=== PATIENT | male | born 1960 | race Caucasian/White ===

== ENCOUNTER → 2020-04-10 09:22 | Outpatient (BNVA) | payer MEDICARE, SELFPAY | PROVIDERS: Family Provider Urology; PCP Family Medicine; Visit Provider Family Medicine Adult Medicine | DX: I12.9 Hypertensive chronic kidney disease with stage 1 through stage 4 chronic kidney disease, or unspecified chronic kidney disease (principal); M10.9 Gout, unspecified; Z12.5 Encounter for screening for malignant neoplasm of prostate; N18.30 Chronic kidney disease, stage 3 unspecified | CPT/HCPCS: 80053; 84153; 84550; 85025 ==

== ENCOUNTER 2021-07-07 08:12 | Emergency (ER) | payer MEDICARE, SELFPAY ==
[2021-07-07 08:28] VITALS: PULSE 119; RESP 18; TEMP 36.8; O2SAT 94; BMI 34.9
[2021-07-07 08:36] VITALS: BP 197/112
--- NOTE | 2021-07-07 08:42 | ED_ITS ---
HPI - Male Genitourinary General: Chief complaint: Urogenital-Male Stated complaint: Diff Urinating Time Seen by Provider: 07/07/21 08:29 Source: patient and family Mode of arrival: ambulatory Limitations: no limitations History of Present Illness: HPI Narrative: Patient is a nice 60-year-old male who presents to ED today along with family for concerns of acute urinary retention that began around 9-10 PM yesterday evening. Patient is complaining of lower abdominal pain and distention. Patient reports he had some issues with his prostate approximately 7 years ago but states he has not had much issues since then. He has not noticed any hematuria. No flank pain. No fevers. No new medications. No recent surgeries or anesthesia. Current medications include allopurinol and lisinopril. MD Complaint: other (urinary retention) Onset (ago): hour(s) Associated symptoms: Deny dysuria, hematuria, nausea or vomiting Review of Systems Const: Denies: fever(s), chills, body aches, fatigue or malaise Card: Denies: chest pain Resp: Denies: dyspnea GI: Reports: abdominal pain; Denies: nausea, vomiting or diarrhea : Reports: difficulty urinating and difficulty starting urination; Denies: flank pain, dysuria or hematuria Musc: Denies: back pain Neuro: Denies: headache(s) PFSH ED PFSH: Medical History (Updated 07/07/21 @ 11:46 by LIV Ngo) CKD (chronic kidney disease) stage 3, GFR 30-59 ml/min Hypertension Prostate cancer screening Social History Smoking and tobacco status: never smoked Alcohol intake: never Physical Exam Const: COMMON NORMALS: patient oriented x3, no limitations and alert GENERAL APPEARANCE: cooperative and in distress (uncomfortable) ORIENTATION/CONSCIOUSNESS: Yes awake, Yes oriented to person, Yes oriented to place and Yes oriented to time HENMT: COMMON NORMALS: normocephalic and atraumatic HEAD & SCALP: normocephalic and atraumatic Resp: COMMON NORMALS: normal respiratory effort and clear to auscultation bilaterally AUSCULTATION: clear to auscultation bilaterally Cardio: COMMON NORMALS: regular rate and regular rhythm RATE: regular rate RHYTHM: regular rhythm GI: COMMON NORMALS: Soft to palpation and No hepatosplenomegaly present INSPECTION: Yes normal to inspection AUSCULTATION: Yes normoactive bowel sounds PALPATION: Yes Soft to palpation, Yes No hepatosplenomegaly present and Yes Other GI palpation findings present (distended bladder) : COMMON NORMALS: Yes no CVA tenderness BLADDER/KIDNEY EXAM: Yes no CVA tenderness Back/Pelvis: COMMON NORMALS: no CVA tenderness LUMBAR SPINE/LOWER BACK: Yes normal to inspection, Yes lumbar ROM normal and No lumbar spinal tenderness Extremity: COMMON NORMALS: normal to inspection, no clubbing, cyanosis or edema, no calf tenderness and no pedal edema Neuro: COMMON NORMALS: patient oriented x3 SENSORIUM/ORIENTATION: Yes alert, Yes oriented to person, Yes oriented to place and Yes oriented to time Skin: COMMON NORMALS: no rashes or lesions noted GENERAL SKIN EXAM: no rashes or lesions noted Course ED course: Davis inserted by RN-per nurse she initially had trouble inserting davis, removed, cleaned and re-inserted and noted bloody urine-about 800cc drained; no clots or sediment noted; irrigated davis until clear-tubing now completely clear Consultations: Consultation #1: Dr. Mendez-recommends flomax, increase fluids, and will follow up in office Vital Signs: Vital signs: Vital Signs Temperature 98.2 F 07/07/21 08:28 Pulse Rate 55 L 07/07/21 11:00 Respiratory Rate 18 07/07/21 09:06 Blood Pressure 174/98 07/07/21 11:00 Pulse Oximetry 96 07/07/21 11:00 MDM - Male MDM Narrative: Medical decision making narrative: Patient feels much better after Davis insertion and bladder decompression. Spoke to Dr. Mendez who recommends placing patient on Flomax and he will follow up in office. Recommends increasing fluid intake. Lab Data: Labs: Lab Results 07/07/21 07/07/21 07/07/21 08:57 09:02 09:02 WBC 8.9 10^3/uL 10^3/ uL (4.0-10.0) RBC 5.65 10^6/uL H 10 ^6/uL (4.1-5.3) Hgb 16.0 g/dL g/dL (11.7-16.6) Hct 48.9 % % (42.0-52.0) MCV 86.5 fl fl (80-94) MCH 28.3 pg pg (28.0-34.0) MCHC 32.7 g/dL g/dL (30.0-36.0) RDW 14.0 % % (12.1-15.1) Plt Count 309 10^3/cmm 10^3 /cmm (130-400) MPV 8.8 fL fL (7.4-10.4) Neut % (Auto) 75.6 % % Lymph % (Auto) 17.8 % % Collier % (Auto) 5.2 % % Eos % (Auto) 0.6 % % Baso % (Auto) 0.5 % % Neut # (Auto) 6.72 10^3/uL 10^3 /uL (1.8-7.7) Lymph # (Auto) 1.6 10^3/uL 10^3/ uL (0.8-4.8) Collier # (Auto) 0.5 10^3/uL 10^3/ uL (0.2-0.9) Eos # (Auto) 0.1 10^3/uL 10^3/ uL (0.0-0.8) Baso # (Auto) 0.0 10^3/uL 10^3/ uL (0.0-0.1) Nucleated RBC % (a uto) 0 % % Nucleated RBCs # 0.0 /100WBC /100W BC Sodium 140 mmol/L mmol/L (136-145) Potassium 4.3 mmol/L mmol/L (3.5-5.1) Chloride 105 mmol/L mmol/L (98-107) Carbon Dioxide 21 mmol/L L mmol/ L (22-29) Anion Gap 18.3 (5-19) BUN 13 mg/dL mg/dL (8-23) Creatinine 1.0 mg/dL mg/dL (0.7-1.2) GFR Calculation 75.7 mL/min L mL/ min (90-130) Glucose 98 mg/dL mg/dL (65-115) Calculated Osmolal ity 290 mOsm/kg mOsm/ kg (285-295) Calcium 8.7 mg/dL mg/dL (8.5-10.5) Total Bilirubin 0.3 mg/dL mg/dL (0.15-1.2) AST 22 U/L U/L (0-40) ALT 22 U/L U/L (0-41) Alkaline Phosphata se 81 IU/L IU/L (40-130) Total Protein 7.3 g/dL g/dL (6.6-8.7) Albumin 4.1 g/dL g/dL (3.5-5.2) Globulin 3.2 g/dL g/dL (1.3-4.6) Urine Color Red (Yellow) Urine Appearance Cloudy (CLEAR) Urine pH 5 (5-7) Ur Specific Gravit y 1.020 (1.005-1.030) Urine Protein 1+ H (Negative) Urine Glucose (UA) Norm (Normal) Urine Ketones Negative (Negative) Urine Blood 3+ H (Negative) Urine Nitrate Negative (Negative) Urine Bilirubin Neg (Negative) Urine Urobilinogen Norm mg/dL mg/dL (Negative) Ur Leukocyte Brittney ase Negative (Negative) Urine RBC >100 /hpf H /hpf (0-2) Urine WBC 10-15 /hpf H /hpf (0-5) Ur Squamous Epith Cells 0-4 /hpf H /hpf (0-5) Amorphous Sediment Not Reportable Urine Bacteria 2+ /hpf H /hpf (NONE) Imaging Data: CT Abd/Pel: Radiologist's impression: [place] [address] CT Scan Report Signed Patient: Javon Potter Unit #: [id number] : [id number] Age/Sex: 60 / M ADM Date: 07/07/21 Loc: ER Room/Bed: Attending Dr: Ordering Provider/Ordering MD: Demetria Gonzalez Date of Service: 07/07/21 Procedure(s): CT abdomen pelvis wo/w [id number] Accession Number(s): [id number] Report Number: [id number] WS: [id number] CT ABDOMEN PELVIS TECHNIQUE: Noncontrast CT of the abdomen and contrast-enhanced CT of the abdomen and pelvis with coronal and sagittal reformatted images. CLINICAL INFORMATION: gross hematuria/acute urinary retention COMPARISON: None. DLP: 3444.[address] scans at [facility] use at least one of these dose optimization techniques: automated exposure control; mA and/or kV adjustment per patient size (includes targeted exams where dose is matched to clinical indication); or iterative reconstruction. FINDINGS: Markedly enlarged heterogeneously enhancing prostate measures 5.5 x 7.9 x 8.9 cm AP by transverse by craniocaudal suspicious for neoplasia/hyperplasia. Davis catheter in place. Bladder is decompressed. Mild diffuse fatty infiltration of the liver. Normal gallbladder. Normal portal vein and splenic vein. Fatty atrophy of the pancreas. Splenic granulomas. Small esophageal hiatal hernia. Slight atelectasis in the lung bases. Calcified granuloma right lower lobe. A few shoddy and slightly prominent periaortic lymph nodes the largest aortocaval measuring 7 mm. No abdominal or pelvic lymphadenopathy. Stomach and proximal duodenum appear normal. Adrenal glands are normal. Normal renal parenchymal enhancement. No hydronephrosis. Normal caliber abdominal aorta. Aortic calcification. No evidence of small or large bowel obstruction. Normal appendix in the right lower quadrant. Grade 1 anterolisthesis L5 on S1 with chronic bilateral pars defects. Grade 1 anterolisthesis measures [address]/CT abdomen pelvis wo/w [id number] IMPRESSION: 1. Markedly enlarged heterogeneous enhancing prostate suspicious for neoplasia/hyperplasia. Recommend correlation PSA and urology consultation. 2. Bladder is decompressed with Davis catheter. 3. Normal renal parenchymal enhancement bilaterally. No hydronephrosis in either kidney. 4. Mild diffuse fatty infiltration liver. 5. No abdominal or pelvic lymphadenopathy. Prominent aortocaval lymph node measuring 7 mm in short axis dimension. Notified LIV Ngo at 07/07/2021 10:56 AM. Dictated By: Christofer King MD Signed By: Christofer King MD Signed Date/Time: 07/07/21 1100 DD/ 1044 Discharge Plan Discharge Patient Disposition: Home Clinical Impression: Acute urinary retention, Davis catheter in place, Hyperplasia of prostate Condition: Stable Prescriptions: New tamsulosin [Flomax] 0.4 mg capsule 0.4 mg PO DAILY Qty: 30 RF: 0 No Action cephalexin 500 mg capsule 500 mg PO TID 7 Days Qty: 21 RF: 0 lisinopril 20 mg tablet See Rx Instructions .ROUTE .COMPLEX Qty: 90 RF: 1 allopurinol 100 mg tablet See Rx Instructions .ROUTE .COMPLEX Qty: 90 RF: 1 Discharge Orders: Discharge ED (Routine); Ordered 07/07/21 Ordered By: Demetria Gonzalez Referrals: Irena Chandra DO [Primary Care Provider] - Patient Instructions: Davis Catheter Care, Urinary Retention in Men (ED), Enlarged Prostate (BPH) (ED), Davis Catheter Placement and Care (ED), How to Change a Catheter Drainage Bag (DC) Activity Restrictions/Additional Instructions: As we discussed you should hear from case management shortly on patient's follow-up date and time with Dr. Mendez/urology. He needs to begin taking Flomax today. Increase fluid intake as much as possible to help keep Davis draining and avoid clotting/obstruction. He needs to return to the emergency department if Davis is not draining appropriately. Coding Level of Care Code ED Membership Sales Advisor for [employer] Fwd Exam Comprehensive
[2021-07-07 09:06] VITALS: BP 202/105; PULSE 99; RESP 18; O2SAT 92
--- NOTE | 2021-07-07 09:06 | PC.NURSE ---
GUILLAUME CATHETER PLACED. PATIENT TOLERATED PROCEDURE WELL. GUILLAUME CATHETER ADVANCED WELL, BUT TUBING APPEARED OCCLUDED WITH NO URINE RETURN. NURSE REMOVED CATHETER, RE-CLEANSED WITH BETADINE, RE-ADVANCED CATHETER, URINE FLOW UPON ADVANCEMENT. URINE BRIGHT RED IN APPEARANCE.
--- NOTE | 2021-07-07 09:27 | PC.NURSE ---
Did not take morning meds for Blood Pressure
[2021-07-07 09:29] LABS: Add Urine Culture? Yes; Add Urine Microscopic? YES; Bacteria Urine 2+ /hpf; Bilirubin Urine Neg (Negative); Blood Urine 3+ (Negative); Glucose Urine UA Norm (Normal); Ketones Urine Negative (Negative); Leukocyte Esterase Urine Negative (Negative); Nitrate Urine Negative (Negative); Protein Urine 1+ (Negative); RBC Urine >100 /hpf (0-2); Squamous Epithelial Cell Urine 0-4 /hpf (0-5); Urine Appearance Cloudy (CLEAR); Urine Color Red (Yellow); Urobilinogen Urine Norm (Negative); pH Urine 5 (5-7)
[2021-07-07 09:30] LABS: Basophils % 0.5 %; Eosinophils # 0.1 10^3/uL (0.0-0.8); Eosinophils % 0.6 %; Hematocrit 48.9 % (42.0-52.0); Lymphocytes # 1.6 10^3/uL (0.8-4.8); Lymphocytes % 17.8 %; Mean Corpuscular HGB Conc 32.7 g/dL (30.0-36.0); Mean Corpuscular Hemoglobin 28.3 pg (28.0-34.0); Mean Corpuscular Volume 86.5 fl (80-94); Mean Platelet Volume 8.8 fL (7.4-10.4); Monocytes # 0.5 10^3/uL (0.2-0.9); Monocytes % 5.2 %; Neutrophils # 6.72 10^3/uL (1.8-7.7); Neutrophils % 75.6 %; Nucleated Red Blood Cells % 0 %; Platelet Count 309 10^3/cmm (130-400); Red Blood Count 5.65 10^6/uL (4.1-5.3); White Blood Count 8.9 10^3/uL (4.0-10.0)
--- NOTE | 2021-07-07 09:36 | CT_ITS ---
WS: [id number] CT ABDOMEN PELVIS TECHNIQUE: Noncontrast CT of the abdomen and contrast-enhanced CT of the abdomen and pelvis with bessie nal and sagittal reformatted images. CLINICAL INFORMATION: gross hematuria/acute urinary retention COMPARISON: None. DLP: 3444.[address] scans at [facility] use at least one of these dose optimization techniques: automated e xposure control; mA and/or kV adjustment per patient size (includes targeted exams where dose is matc hed to clinical indication); or iterative reconstruction. FINDINGS: Markedly enlarged heterogeneously enhancing prostate measures 5.5 x 7.9 x 8.9 cm AP by transverse by craniocaudal suspicious for neoplasia/hyperplasia. Sloan catheter in place. Bladder is decompressed. Mild diffuse fatty infiltration of the liver. Normal gallbladder. Normal portal vein and splenic vein . Fatty atrophy of the pancreas. Splenic granulomas. Small esophageal hiatal hernia. Slight atelectas is in the lung bases. Calcified granuloma right lower lobe. A few shoddy and slightly prominent peria ortic lymph nodes the largest aortocaval measuring 7 mm. No abdominal or pelvic lymphadenopathy. Stomach and proximal duodenum appear normal. Adrenal glands are normal. Normal renal parenchymal enha ncement. No hydronephrosis. Normal caliber abdominal aorta. Aortic calcification. No evidence of smal l or large bowel obstruction. Normal appendix in the right lower quadrant. Grade 1 anterolisthesis L5 on S1 with chronic bilateral pars defects. Grade 1 anterolisthesis measures [address]/CT abdomen pelvis wo/w [id number] IMPRESSION: 1. Markedly enlarged heterogeneous enhancing prostate suspicious for neoplasia /hyperplasia. Recommend correlation PSA and urology consultation. 2. Bladder is decompressed with Sloan catheter. 3. Normal renal parenchymal enhancement bilaterally. No hydronephrosis in eith er kidney. 4. Mild diffuse fatty infiltration liver. 5. No abdominal or pelvic lymphadenopathy. Prominent aortocaval lymph node varsha suring 7 mm in short axis dimension. Notified LIV Ngo at 07/07/2021 10:56 AM.
[2021-07-07 09:49] LABS: Alanine Aminotransferase 22 U/L (0-41); Albumin Level 4.1 g/dL (3.5-5.2); Alkaline Phosphatase 81 IU/L (40-130); Blood Urea Nitrogen 13 mg/dL (8-23); Calcium 8.7 mg/dL (8.5-10.5); Carbon Dioxide 21 mmol/L (22-29); Chloride 105 mmol/L (98-107); Globulin 3.2 g/dL (1.3-4.6); Glomerular Filtration Rate 75.7 mL/min (90-130); Glucose 98 mg/dL (65-115); Osmolality Calculated 290 mOsm/kg (285-295); Sodium 140 mmol/L (136-145); Total Bilirubin 0.3 mg/dL (0.15-1.2); Total Protein 7.3 g/dL (6.6-8.7)
[2021-07-07 09:51] LABS: Anion Gap 18.3 (5-19); Aspartate Amino Transferase 22 U/L (0-40); Potassium 4.3 mmol/L (3.5-5.1)
[2021-07-07] MEDS: metoprolol tartrate 1 mg/1 mL SDV 5 mL 2.5 MG IVP (10:20)
[2021-07-07] MEDS: lisinopril 20 mg Tablet PO (10:20)
[2021-07-07] MEDS: iohexol 300 mg/mL 100 mL Btl IV (10:29)
[2021-07-07 11:00] VITALS: BP 174/98; PULSE 55; O2SAT 96
--- NOTE | 2021-07-07 11:37 | DCPLANNER ---
manager dialysis was asked to schedule a follow up appointment for patient with Dr. Mendez. manager dialysis sent patients information to Matti Alford and Julie at Dr. Matson office thru [employer] laboratory manager. Patients information will be printed and reviewed, clinic will call patient with appointment information.
[2021-07-07 11:57] VITALS: BP 174/98; PULSE 75; RESP 19; O2SAT 95
--- NOTE | 2021-07-08 13:04 | DCPLANNER ---
Patient has a follow up appointment scheduled for 07.23.20 at 9:[address] Mendez. Clinic will call patient with appointment information.
--- NOTE | 2021-07-27 08:05 | DCPLANNER ---
Patient had a follow up appointment scheduled for 07.23.[address] Mendez - patient did attend appointment.
== END 2021-07-07 12:12 | disposition home or self-care (01) ==
PROVIDERS: Emergency Provider Physician Assistant; PCP Family Medicine
DX: R33.9 Retention of urine, unspecified (principal); N40.0 Benign prostatic hyperplasia without lower urinary tract symptoms; I12.9 Hypertensive chronic kidney disease with stage 1 through stage 4 chronic kidney disease, or unspecified chronic kidney disease; N18.30 Chronic kidney disease, stage 3 unspecified
CPT/HCPCS: 51702; 74178; 80053; 81001; 85025; 87086; 96374; 99284; J3490; Q9967

== ENCOUNTER 2021-09-10 08:47 | Outpatient (CLI) | payer MEDICARE, SELFPAY | END 2021-09-10 08:48 | disposition home or self-care (01) | PROVIDERS: PCP Family Medicine; Visit Provider Urology | DX: N40.1 Benign prostatic hyperplasia with lower urinary tract symptoms (principal); R31.9 Hematuria, unspecified; R97.20 Elevated prostate specific antigen [PSA] | CPT/HCPCS: 36415; 81003; 84153; 87077; 87086; 87184 ==

== ENCOUNTER → 2021-10-28 15:26 | Outpatient (BNVA) | payer MEDICARE, SELFPAY | PROVIDERS: PCP Family Medicine; Visit Provider Urology | DX: R97.20 Elevated prostate specific antigen [PSA] (principal) | CPT/HCPCS: 88305 ==

== ENCOUNTER → 2022-01-06 11:51 | Outpatient (BNVA) | payer MEDICARE, SELFPAY | PROVIDERS: PCP Family Medicine Adult Medicine; Visit Provider Family Medicine Adult Medicine | DX: M10.9 Gout, unspecified (principal); I10 Essential (primary) hypertension; N18.30 Chronic kidney disease, stage 3 unspecified | CPT/HCPCS: 80053; 83036; 84550; 85025 ==

== ENCOUNTER → 2022-02-08 08:41 | Outpatient (BNVA) | payer MEDICARE, SELFPAY | PROVIDERS: PCP Family Medicine Adult Medicine; Visit Provider Otolaryngology | DX: H91.93 Unspecified hearing loss, bilateral (principal) | CPT/HCPCS: 99203 ==

== ENCOUNTER 2022-02-22 09:33 | Outpatient (CLI) | payer MEDICARE, SELFPAY ==
[2022-02-22 10:18] LABS: Prostate Specific AG Urology 20.94 ng/mL (0-4)
== END 2022-02-22 09:34 | disposition home or self-care (01) ==
LOC: LAB 09:33
PROVIDERS: PCP Family Medicine Adult Medicine; Visit Provider Urology
DX: R97.20 Elevated prostate specific antigen [PSA] (principal); N40.1 Benign prostatic hyperplasia with lower urinary tract symptoms
CPT/HCPCS: 36415; 51798; 81003; 84153; 99213

== ENCOUNTER 2022-04-14 07:27 | Outpatient (CLI) | payer MEDICARE, MEDICAID, SELFPAY ==
--- NOTE | 2022-04-14 07:34 | MR_ITS ---
WS: [id number] MRI BRAIN WITH HIGH-RESOLUTION IMAGING THROUGH THE INTERNAL AUDITORY CANALS WITHOUT CONTRAST HISTORY: UNSPECIFIED SENSORINEURAL HEARING LOSS COMPARISON: None available. TECHNIQUE: Multiplanar, multisequence imaging is performed through the brain. Additional 3 mm imaging performed in multiple planes through the internal auditory canal. Unable to obtain IV access. Study done without contrast. No acute intracranial hemorrhage, midline shift, edema or mass effect. Severe T2 and FLAIR signal hyperintensities throughout the white matter. Greatest distribution in the subcortical and periventricular white matter. This is more than typically seen secondary to small ve ssel ischemic disease. Additional lacunar infarct versus perivascular space inferior LEFT basal gangl ia. No ischemic disease within the andie or cerebellum. Ventricles and extra-axial spaces are normal. No inferior displacement of cerebellar tonsils. Clivus and pituitary gland are normal. Internal and external auditory canals: Unremarkable. Cranial nerves VII and VIII complexes: Unremarkable. Cerebellopontine angles: Normal. Paranasal sinuses: Mild mucoperiosteal thickening in the maxillary sinuses. No air-fluid levels. Mastoid air cells: Normal. Calvarium and scalp: Normal. MR/MR iac's wo con [id number] IMPRESSION: 1. No abnormality noted at the cerebellopontine angles or the financial auditor y canals on this unenhanced exam. Unable to obtain IV access for postcontrast i maging. 2. Severe supratentorial white matter lesions. More than typically seen at thi s age for small vessel ischemic disease. Consider additional etiologies such as demyelination and vasculitis.
== END 2022-04-14 07:28 | disposition home or self-care (01) ==
LOC: RAD 07:27
PROVIDERS: PCP Family Medicine Adult Medicine; Visit Provider Specialist
DX: H90.5 Unspecified sensorineural hearing loss (principal); G93.89 Other specified disorders of brain
CPT/HCPCS: 70551

== ENCOUNTER → 2022-04-25 08:45 | Outpatient (BNVA) | payer MEDICARE, MEDICAID, SELFPAY | PROVIDERS: PCP Family Medicine Adult Medicine; Referring Provider Family Medicine Adult Medicine; Visit Provider Specialist | DX: M48.062 Spinal stenosis, lumbar region with neurogenic claudication (principal); G82.22 Paraplegia, incomplete; R26.89 Other abnormalities of gait and mobility; R90.82 White matter disease, unspecified; Z77.22 Contact with and (suspected) exposure to environmental tobacco smoke (acute) (chronic) | CPT/HCPCS: 99205 ==

== ENCOUNTER → 2022-05-31 07:54 | Outpatient (BNVA) | payer MEDICARE, MEDICAID, SELFPAY | PROVIDERS: PCP Family Medicine Adult Medicine; Visit Provider Family Medicine | DX: J02.9 Acute pharyngitis, unspecified (principal); J34.89 Other specified disorders of nose and nasal sinuses; R05.9 Cough, unspecified; R52 Pain, unspecified; J10.1 Influenza due to other identified influenza virus with other respiratory manifestations | CPT/HCPCS: 87400; 87426 ==

== ENCOUNTER 2022-06-13 13:45 | Outpatient (CLI) | payer MEDICARE, MEDICAID, SELFPAY ==
--- NOTE | 2022-06-13 14:30 | MR_ITS ---
WS: [id number] MRI LUMBAR SPINE NONCONTRAST TECHNIQUE: Sagittal T1, T2 and STIR imaging. Axial T1 and T2 imaging. CLINICAL INFORMATION: M54.50 - Low back pain, unspecified COMPARISON: None. FINDINGS: Mild lumbar curve. No acute compression. Grade 1 anterolisthesis L5 on S1 measuring 6 mm with chronic spondylolysis. Mild central canal stenosis in cervical spine dispatcher motor vehicle imaging at C3-C4 C4-C5 C5-C6 and C6-C7. Marked enlargement of prostate similar to CT June 2021 Measuring 7.5 x10.1 craniocaudal. Tiny shallow protrusions in the lower thoracic spine at T11-T12 and T12-L1. L1-L2: Mild annular bulging. Mild facet arthropathy. Mild RIGHT and no significant LEFT foraminal ajit rowing. Mild facet arthropathy L2-L3: Slight retrolisthesis. Mild disc bulging and osteophytic ridging. Mild central canal stenosis. Mild facet arthropathy. Mild bilateral foraminal narrowing. L3-L4: Eccentric disc bulging with mild bilateral foraminal narrowing. Mild facet arthropathy. L4-L5: RIGHT eccentric endplate ridging with mild RIGHT foraminal narrowing. Spinal canal and foramen are patent. Mild facet arthropathy. L5-S1: Grade 1 anterolisthesis with spondylolysis. Moderate RIGHT and severe LEFT foraminal narrowing . Mild facet arthropathy. MR/MR lumbar spine wo con* [id number] IMPRESSION: 1. Mild lumbar curve. No acute compression. 2. Grade 1 anterolisthesis L5 on S1 with chronic spondylolysis measuring 6 mm. 3. Mild central canal stenosis L2-L3 with shallow central disc protrusion and mild facet arthropathy. 4. Mild bilateral L3-L4 and RIGHT L4-L5 foraminal narrowing. 5. Moderate RIGHT and severe LEFT L5-S1 foraminal narrowing. 6. Mild central canal stenosis on the dispatcher motor vehicle imaging cervical spine C3-C5 7. Marked enlargement of the prostate measuring 7.5 x 10.1 cm AP by rui hinton.
--- NOTE | 2022-06-13 15:15 | MR_ITS ---
WS: [id number] MRI CERVICAL SPINE NONCONTRAST TECHNIQUE: Sagittal T1, T2 and STIR imaging. Axial T2, gradient, and fiesta imaging. CLINICAL INFORMATION: M54.2 - Cervicalgia COMPARISON: None. FINDINGS: Straightening of the normal cervical lordosis. Disc bulging at C3-C5 with slight indentation on cervi demond cord. Myelomalacia in the cervical cord at C4-C5 with moderate central canal stenosis. C2-C3: No significant disc bulging. Mild facet arthropathy. Mild LEFT and no significant RIGHT forami nal narrowing. Spinal canal is patent. C3-C4: Mild disc osteophyte complex with endplate ridging. Mild central canal stenosis. Mild facet ar thropathy. Moderate LEFT and mild RIGHT bony foraminal narrowing. C4-C5: Disc osteophyte complex with endplate ridging. Moderate central canal stenosis. Moderate to se yessi LEFT bony foraminal narrowing. Mild RIGHT bony foraminal narrowing. Moderate facet arthropathy. C5-C6: Disc osteophyte complex endplate ridging. Shallow central disc protrusion. Slight contact of t he cervical cord. Mild central canal stenosis. Moderate facet arthropathy. Mild to moderate RIGHT and mild LEFT bony foraminal narrowing. C6-C7: Disc osteophyte complex with endplate ridging. Tiny pericentral protrusion with slight contact of the cervical cord. Spinal canal is patent. Mild LEFT greater than RIGHT bony foraminal narrowing. C7-T1: Mild disc osteophytic ridging. Mild LEFT and no significant RIGHT foraminal narrowing. Spinal canal is patent. Visualized brain stem structures: Normal. Prevertebral soft tissues: Normal. MR/MR cervical spin wo con* [id number] IMPRESSION: 1. Straightening of the normal cervical lordosis. 2. Moderate central canal stenosis C4-C5 to disc osteophyte protrusion with in dentation on cervical cord. Myelomalacia in the cervical cord at this level. 3. Mild central canal stenosis C3-C4 and C5-C6 with small central disc osteoph yte protrusions with slight contact of the cervical cord. 4. Tiny RIGHT pericentral protrusion C6-C7 with slight contact of the cervical cord. Spinal canal is patent. 5. Moderate to severe LEFT C4-C5 bony foraminal narrowing. 6. Otherwise mild to moderate bony foraminal narrowing worse at LEFT C3-C4, RI GHT C5-C6, and bilateral C6-C7 worse in the LEFT.
--- NOTE | 2022-06-13 16:00 | MR_ITS ---
WS: [id number] MRI THORACIC SPINE WITHOUT CONTRAST TECHNIQUE: Sagittal T1, T2 and STIR imaging. Axial T2 imaging. Noncontrast imaging obtained. CLINICAL INFORMATION: M54.6 - Pain in thoracic spine COMPARISON: None. FINDINGS: Mild thoracic curve. No acute compression. Small protrusions in the mid and lower thoracic spine wors e at T9-T10. Shallow RIGHT pericentral protrusion T9-T10 with mild central canal stenosis and slight contact of the thoracic cord. Mild central canal stenosis T10-T11 and T11-T12. Shallow LEFT pericentral protrusion T11-T12 with mil d LEFT foraminal narrowing. T9-T10: Shallow RIGHT pericentral protrusion. Slight contact of the thoracic cord. Mild to moderate R IGHT foraminal narrowing. Moderate facet arthropathy. T10-T11: Minimal disc bulging. Mild central canal stenosis with facet arthropathy and ligamentum flav um hypertrophy. Moderate facet arthropathy at this level. Moderate LEFT and mild RIGHT foraminal narr owing. T11-T12: Shallow LEFT pericentral protrusion. Slight contact of the LEFT ventral thoracic cord. Mild central canal stenosis. Mild LEFT foraminal narrowing. RIGHT foramen is patent. Mild facet arthropath y. Normal caliber thoracic aorta. Adrenal glands are normal. MR/MR thoracic spin wo con* [id number] IMPRESSION: 1. Mild central canal stenosis T9-T10, T10-T11, T11-T12. 2. Shallow RIGHT pericentral disc protrusion T9-T10 with mild central canal st enosis and slight contact of the RIGHT thoracic cord. Mild RIGHT foraminal narr owing at this level. 3. Moderate LEFT and mild RIGHT T10-T11 bony foraminal narrowing with moderate facet arthropathy. 4. LEFT pericentral protrusion T11-T12 with mild central canal stenosis and mi ld LEFT foraminal narrowing. 5. Cord signal is normal.
== END 2022-06-13 13:46 | disposition home or self-care (01) ==
LOC: RAD 13:46
PROVIDERS: PCP Family Medicine Adult Medicine; Visit Provider Specialist
DX: G89.29 Other chronic pain (principal); M54.50 Low back pain, unspecified; M54.2 Cervicalgia; M54.6 Pain in thoracic spine
CPT/HCPCS: 72141; 72146; 72148

== ENCOUNTER → 2022-06-16 13:12 | Outpatient (BNVA) | payer MEDICARE, MEDICAID, SELFPAY | PROVIDERS: PCP Family Medicine Adult Medicine; Referring Provider Specialist; Visit Provider Orthopaedic Surgery | DX: M47.12 Other spondylosis with myelopathy, cervical region (principal); M54.9 Dorsalgia, unspecified | CPT/HCPCS: 72050; 72110; 99204 ==

== ENCOUNTER → 2022-07-18 10:13 | Outpatient (BNVA) | payer MEDICARE, MEDICAID, SELFPAY | PROVIDERS: PCP Family Medicine Adult Medicine; Visit Provider Specialist | DX: M48.03 Spinal stenosis, cervicothoracic region (principal); M54.13 Radiculopathy, cervicothoracic region; G82.20 Paraplegia, unspecified; R26.89 Other abnormalities of gait and mobility | CPT/HCPCS: 99214 ==

== ENCOUNTER 2022-07-22 05:44 | Day surgery (SDC) | payer MEDICARE, MEDICAID, SELFPAY ==
[2022-07-20 08:10] VITALS: BMI 37.1
--- NOTE | 2022-07-20 08:22 | ANES.PREANE2 ---
Pre-Anesthetic Assessment Height/Weight: Height 1.68 m Weight 104.326 kg Operation Date: 07/22/22 09:00 Proposed Procedures p ACDF C4/5 C5/6 57121/[id number]/61396C3/08899/M48.02(Not Applicable) - Chris Chase, Familial anesthetic complications: None Social No alcohol and No tobacco Exam alert, oriented x 3, clear to auscultation bilaterally and regular rate & rhythm Airway Mallampati: Class III Dentition: chipped and other (very poor dentition) Pulmonary None reported CV/HEM Hypertension Chronic Renal Insufficiency (stage II) Hepatic None reported GI None reported Metabolic Morbid Obesity and None reported Neuropsych None reported Anesthetic Plan ASA status: 3 Anesthesia: General Risk of > 500 ml blood loss (7ml/kg in children): No Medications/Allergies Home Medications Medication Instructions Recorded Confirmed Last Taken Type acetaminophen 650 mg 650 mg PO Q8H PRN Pain (Scale 07/16/21 07/20/22 07/13/22 History tablet,extended release (Tylenol Score 1-3) Arthritis Pain) allopurinol 100 mg tablet 100 mg PO BID #180 tabs 01/06/22 07/20/22 07/19/22 Rx azelastine 137 mcg (0.1 %) nasal 1 spray intranasal BID 05/05/22 07/20/22 07/19/22 History spray aerosol tamsulosin 0.4 mg capsule See Rx Instructions .Route 06/13/22 07/20/22 07/19/22 Rx .COMPLEX #90 caps hydrochlorothiazide 12.5 mg tablet See Rx Instructions .Route 06/24/22 07/20/22 07/19/22 Rx .COMPLEX #60 tabs finasteride 5 mg tablet 5 mg PO QDAY #90 tabs 06/25/22 07/20/22 07/19/22 Rx intraoperative neuromonitoring #1 ea 07/13/22 07/18/22 Unknown Rx Allergies Allergy/AdvReac Type Severity Reaction Status Date / Time aspirin Allergy decreased Verified 07/20/22 08:06 hearing Penicillins Allergy decreased Verified 07/20/22 08:06 hearing mold Allergy Unknown Unknown Uncoded 07/18/22 10:19 REPLACED BY [facility] Anesthesia Medical History BPH loc w urin obs/LUTS CKD (chronic kidney disease) stage 2, GFR 60-89 ml/min Elevated PSA Hypertension Influenza A Injection of surface of right eye left Obesity Obesity (BMI 35.0-39.9 without comorbidity) Spinal stenosis of cervicothoracic region with radiculopathy Surgical History History of cataract surgery Family History Mother , AT AGE 62 Stroke Social History Smoking and tobacco status: never smoked Smoking risk assessment/counseling performed?: No Alcohol intake: never Desire information about alcohol rehabilitation?: No Counseling given: No Desire information about substance/drug rehabilitation?: No Counseling given: No Caregiver/support person: Yes Marital status: Single Current occupational status: disabled History of recent travel: No Data Anesthesia Cardiac Studies: No Data to Display
[2022-07-22] VITALS (11 sets, daily range): BP systolic 152–178; BP diastolic 82–103; PULSE 69–104; RESP 16–18; TEMP 36.1–36.4; O2SAT 91–96
--- NOTE | 2022-07-22 | XR_ITS ---
WS: [id number] XR cervical spine 3V* [id number] REASON FOR EXAM: ACDF C4-5 C5-6 FINDINGS: Anterior plate and screw fixation C4-C6 with interbody fusion devices at C4-C5 and C5-C6. Surgical appliances are in proper position and alignment. XR/XR cervical spine 3V* [id number] IMPRESSION: Intraoperative cervical spine images as above without abnormality.
[2022-07-22] MEDS: sodium chloride 0.9% 1,000 ML 30 ML IV (06:23)
--- NOTE | 2022-07-22 06:29 | P.HP_ITS ---
Providers/Chief Complaint Primary Care Provider: William Kuhn MD Chief Complaint: ACDF C4/5 C5/6 [id number]/M48.02 History of Present Illness Javon Potter is a 62 year old male gait abnormality.Patient ambulates leaning forward He complains of low back pain today. He is accompanied by a sister and brother in-law. His family is concerned about his balance issues. Chief Complaint: gait and back pain Onset: years Duration: Characteristics: ache , pressure Severity: unable to rate pain today Location: low back Radiating symptoms: bilat lower extremities Aggravating factors: walking, Alleviating factors: none Neuro deficits: denies weakness, incontinence of bowel/bladder, saddle anesthesia. Review of Systems Const: Denies: fever(s), change in weight or fatigue Eyes: Reports: change in vision; Denies: blurry vision, blind spots, photophobia, eye discomfort, seeing flashes or other (Glaucoma) ENMT: Denies: odynophagia, hoarseness, change in hearing, tinnitus, sinus pain or other (Loss of taste/smell) Card: Denies: chest pain, palpitations, syncope or other (Calf cramps) Resp: Denies: dyspnea, non-productive cough, wheezing or hemoptysis GI: Denies: abdominal pain, nausea, heartburn, diarrhea, constipation or hematochezia : Reports: urinary frequency; Denies: urinary incontinence Musc: Reports: muscle weakness; Denies: neck pain or other (Muscle pain) Skin/Breast: Denies: rash, new lesions or breast mass Neuro: Reports: difficulty walking; Denies: headache(s), numbness in extremities, weakness in extremities, sensory changes, Slurred speech present, seizure-like activity or other (Sleep Apnea) Psych: Denies: depression, irritability, memory loss, difficulty concentrating or other (Personality Changes) Endo: Reports: polyuria; Denies: polydipsia, excessive sweating or change in body appearance Guillermo/Lymph: Denies: easy bruising, easy bleeding or enlarged lymph nodes Medications/Allergies Home Medications Medication Instructions Recorded Confirmed Last Taken Type acetaminophen 650 mg 650 mg PO Q8H PRN Pain (Scale 07/16/21 07/22/22 07/19/22 History tablet,extended release (Tylenol Score 1-3) Arthritis Pain) allopurinol 100 mg tablet 100 mg PO BID #180 tabs 01/06/22 07/22/22 07/21/22 Rx azelastine 137 mcg (0.1 %) nasal 1 spray intranasal BID 05/05/22 07/22/22 07/21/22 History spray aerosol finasteride 5 mg tablet 5 mg PO QDAY #90 tabs 06/25/22 07/22/22 07/21/22 Rx intraoperative neuromonitoring #1 ea 07/13/22 07/18/22 Unknown Rx hydrochlorothiazide 12.5 mg tablet 12.5 mg PO DAILY 07/22/22 07/22/22 07/22/22 History lisinopril 10 mg tablet 10 mg PO DAILY 07/22/22 07/22/22 07/22/22 History tamsulosin 0.4 mg capsule 0.4 mg PO DAILY 07/22/22 07/22/22 07/21/22 History Allergies Allergy/AdvReac Type Severity Reaction Status Date / Time aspirin Allergy decreased Verified 07/20/22 08:06 hearing Penicillins Allergy decreased Verified 07/20/22 08:06 hearing mold Allergy Unknown Unknown Uncoded 07/18/22 10:19 PFSH Acute PFSH: Medical History BPH loc w urin obs/LUTS CKD (chronic kidney disease) stage 2, GFR 60-89 ml/min Elevated PSA Hypertension Influenza A Injection of surface of right eye left Obesity Obesity (BMI 35.0-39.9 without comorbidity) Spinal stenosis of cervicothoracic region with radiculopathy Surgical History History of cataract surgery Family History Mother , AT AGE 62 Stroke Social History Smoking and tobacco status: never smoked Smoking risk assessment/counseling performed?: No Alcohol intake: never Desire information about alcohol rehabilitation?: No Counseling given: No Desire information about substance/drug rehabilitation?: No Counseling given: No Caregiver/support person: Yes Marital status: Single Current occupational status: disabled History of recent travel: No Vitals/I&O/Wt Last Vital Signs Temp 97.5 F L 07/22/22 06:06 Pulse 69 07/22/22 06:06 Resp 16 07/22/22 06:06 BP 168/90 07/22/22 06:06 Pulse Ox 95 07/22/22 06:06 O2 Del Method 07/22/22 06:06 Weight last 48 hrs Weight 230 lb Physical Exam Narrative: CONSTITUTIONAL: The patient is a normal appearing [] in no apparent distress. GENERAL: Patient in no acute distress. CARDIAC: Regular rate and rhythm. CHEST: Normal inspiratory effort, normal respiratory rate. ABDOMEN: Soft and nontender. SKIN: Clear, warm and intact. NEURO?PSYCH: The patient is alert and oriented to person, place and time. Sensorv /SILT Motor StrengthShoulder abduction C5 5/5Wrist extension C6 5/5Elbow extension C7 5/5Hand Table Operator C8 5/5Finger abduction T15/5 Radial/ Ulnar/ Median n intact LowerSensory (SILT)Motor StrengthHin flexion L2/3Ant/inner thigh 5/5Hip adduction L2/3 5/5Knee extension L4 Lat thigh, 5/5Toe dorsiflexion L5 5/5Ankle dorsiflexion L5/ B99Trxggdz flexion S1 5/5 DTRBleeps 2+Triceps 2+Brachioradialis 2+Patellar 2+Achilles 2+ MUSCULOSKELETAL: [] UPPEREXTREMITIES: The patient had full active ROM in fingers, wrist, elbow, and shoulder. The patient demonstrated ability to fully flex/extend/abduct/adduct fingers, make ok sign, cross 2nd/3rd digits, extend 1st digit fully.. Radial pulse 2+, CR<2 seconds. LOWER EXTREMITIES: Pt has full, active ROM of toes, ankle, knee, and hip. Dorsalis pedis/posterior tibialis pulses 2+, CR<2 seconds. SPINE: Skin warm, dry, intact. Data 07/22/22 06:19 A&P Assessment and plan (1) Cervical spondylosis with myelopathy: C4/5 and C5/6 ACDF Attestations Medical Necessity Statement*: failed conservative tx Coding Level of Care Code Acute Code for Chg Fwd Diagnoses Cervical spondylosis with myelopathy M47.12
--- NOTE | 2022-07-22 06:30 | P.ANESUD_ITS ---
Pre-Anesthetic Update Pre-Anesthetic Assessment: Date of Surgery/Procedure: 07/22/22 Preop Viviana gnosis: Cervical spondylosis with myelopathy and radiculopathy Proposed Procedure: Operation Date: 07/22/22 07:00 Proposed Procedures p ACDF C4/5 C5/6 [id number]/M48.02(Not Applicable) - Chris Chase, DO Any changes to Pre-Anesthetic Assessment?: No Last Intake: Intake Last Liquid Date 07/21/22 Last Liquid Time 20:00 Last Solid Date 07/21/22 Last Solid Time 20:00 Labs Last 48hrs: BMP 07/22/22 06:19 Sodium 138 Potassium 3.7 Chloride 101 Carbon Dioxide 29 BUN 19 Creatinine 1.0 Glucose 92 Calcium 9.0 Vitals: Temperature 97.5 F L 07/22/22 06:06 Temperature Source Temporal Artery S can 07/22/22 06:06 Pulse Rate 69 07/22/22 06:06 Respiratory Rate 16 07/22/22 06:06 Blood Pressure 168/90 07/22/22 06:06 Blood Pressure Danita n 116 07/22/22 06:06 Pulse Oximetry 95 07/22/22 06:06 Oxygen Delivery Me thod 07/22/22 06:06 Exam: Pre-Anes Outpt Exam: alert, oriented x 3, clear to auscultation bilaterally and regular rate & rhythm Cardiac Studies: No Data to Display
[2022-07-22 06:46] LABS: Anion Gap 11.7 (5-19); Blood Urea Nitrogen 19 mg/dL (8-23); Carbon Dioxide 29 mmol/L (22-29); Chloride 101 mmol/L (98-107); Glomerular Filtration Rate 75.2 mL/min (90-130); Glucose 92 mg/dL (65-115); Osmolality Calculated 288 mOsm/kg (285-295); Potassium 3.7 mmol/L (3.5-5.1); Sodium 138 mmol/L (136-145)
[2022-07-22] MEDS: clindamycin 900 MG/50 ML PREMIX 100 MG IV (07:00)
--- NOTE | 2022-07-22 08:51 | PM.OP ---
Operative Report Date of procedure: July 22, 2022 Pre-op diagnosis: Preop Diagnosis Cervical spondylosis with myelopathy and radiculopathy Post-op diagnosis: same Procedure done: 1. Anterior diskectomy C4/5 2. Anterior discectomy C5/6 3. Insertion of cage C4/5 4. Insertion of Cage C5/6 5. Instrumentation with anterior plate from C4-6 6. Use of allograft Surgeon: Chris Chase Nurse Anesthesia Program Director: Javed Franks Nurse Anesthesia Program Director: The assembler surgical garment, Javed Franks, TEETEE was needed for his expertise under the microscope. He was important and necessary throughout the procedure to complete in a safe and timely manner. He assisted with patient positioning prepping and draping tissue retraction suctioning of the operative field protection of the dural sac and tissue closure Estimated blood loss (mL): 5 Procedure: 1. Anterior diskectomy C4/5 2. Anterior discectomy C5/6 3. Insertion of cage C4/5 4. Insertion of Cage C5/6 5. Instrumentation with anterior plate from C4-6 6. Use of allograft The patient was taken to the operating room, where he underwent general endotracheal anesthesia without complications. He was then positioned supine on the operating table, and all areas of impingement were well padded. The arms were carefully padded and tucked at his sides. A roll was placed between the shoulder blades.. An x-ray was done to determine the appropriate level for the skin incision. The entire neck was then sterilely prepped and draped in the usual fashion. Neuromonitoring was attached prior to prepping. A transverse skin incision was made and carried down to the platysma muscle. This was then split in line with its fibers. Blunt dissection was carried down medial to the carotid sheath and lateral to the trachea and esophagus until the anterior cervical spine was visualized. A needle was placed into a disc and an x-ray was done to determine its location. The longus colli muscles were then elevated bilaterally with the electrocautery unit. Self-retaining retractors were placed deep to the longus colli muscle. Attention was brought to the C4/5 level that was confirmed on x-ray. A caspar pin was placed into the C4 vertebrae and the C5 vertebrae. The disk space was then distracted. The microscope was then brought in. A radical anterior discectomies were performed at C4/5. This included complete removal of the anterior annulus, nucleus, and posterior annulus. The posterior longitudinal ligament was removed as were the posterior osteophytes. Foraminotomies were then accomplished bilaterally. This was done using a high speed rocío, kerrison rongeurs and curretes Once all of this was accomplished, the curved currette was used to check for any residual compression. The central canal was wide open as were the foramen. A high-speed bur was used to remove the cartilaginous endplates above and below the interspace. Bleeding cancellous bone was exposed. The disc space were measured and appropriate size cage were placed sterilely onto the field. Allograft graft was packed into the cages. The cage was then placed and there was good juxtaposition against the bleeding decorticated surfaces and good distraction of each interspace. Attention was brought to the next interspace. The [place] pins were removed. Bone wax was used to prevent any bleeding from occurring at the pin sites. Attention was brought to the C5/6 level that was confirmed on x-ray. A caspar pin was placed into the C5 vertebrae and the C6 vertebrae. The disk space was then distracted. The microscope was then brought in. A radical anterior discectomies were performed at C5/6. This included complete removal of the anterior annulus, nucleus, and posterior annulus. The posterior longitudinal ligament was removed as were the posterior osteophytes. Foraminotomies were then accomplished bilaterally. This was done using a high speed rocío, kerrison rongeurs and curretes Once all of this was accomplished, the curved currette was used to check for any residual compression. The central canal was wide open as were the foramen. A high-speed bur was used to remove the cartilaginous endplates above and below the interspace. Bleeding cancellous bone was exposed. The disc space were measured and appropriate size cage were placed sterilely onto the field. Allograft graft was packed into the cages. The cage was then placed and there was good juxtaposition against the bleeding decorticated surfaces and good distraction of each interspace. Attention was brought to the next interspace. The [place] pins were removed. Bone wax was used to prevent any bleeding from occurring at the pin sites. The appropriate size anterior cervical locking plate was chosen and bent into gentle lordosis. Two screws were then placed into each of the vertebral bodies at C4, C5, and C6. There was excellent purchase. A final x-ray was done confirming good position of the hardware and Cages. The locking screws were then applied, also with excellent purchase. Following a final copious irrigation, there was good hemostasis and no dural leaks. The carotid pulse was strong. The wounds were then closed in layers using 2-0 Vicryl suture for the platysma muscle, 2-0 Vicryl suture for the subcutaneous tissue, and 4-0 monocryl suture in a subcuticular skin closure. Glue was placed followed by application of a sterile dressing. The drain was hooked to bulb suction. A soft collar was applied. The patient was then carefully returned to the supine position on his hospital bed where he was reversed and extubated and taken to the recovery room having tolerated the procedure well.
--- NOTE | 2022-07-22 19:42 | ANE.PACU2 ---
Inpatient post-anesthesia follow up: Airway intact: Yes Vital signs: Temperature 97.4 F Pulse Rate 79 Respiratory Rate 17 Blood Pressure 162/84 Pulse Oximetry 91 Oxygen Delivery Me thod Room Air Oxygen Flow Rate 2 Fraction of Inspir ed Oxygen Hydration adequate: Yes Nausea and vomiting: No Pain level: 1 Mental status: Baseline
== END 2022-07-22 10:30 | disposition home or self-care (01) ==
PROVIDERS: Anesthesiology; PCP Family Medicine Adult Medicine; Visit Provider Orthopaedic Surgery
PROC: 0RB30ZZ Excision of Cervical Vertebral Disc, Open Approach (ICD-10-PCS; CPT 22551; principal; 2022-07-22 07:00)
DX: M47.12 Other spondylosis with myelopathy, cervical region (principal); I10 Essential (primary) hypertension; E66.01 Morbid (severe) obesity due to excess calories; Z68.37 Body mass index [BMI] 37.0-37.9, adult; N40.1 Benign prostatic hyperplasia with lower urinary tract symptoms; N13.8 Other obstructive and reflux uropathy; N18.2 Chronic kidney disease, stage 2 (mild); I12.9 Hypertensive chronic kidney disease with stage 1 through stage 4 chronic kidney disease, or unspecified chronic kidney disease
CPT/HCPCS: 20930; 22551; 22552; 22845; 22853; 36415; 51702; 72040; 76000; 80048; C1713; C9359; J0131; J0330; J1100; J2370; J2405; J2704; J2710; J3010; J3490; J7030

== ENCOUNTER → 2022-08-04 08:35 | Outpatient (BNVA) | payer MEDICARE, MEDICAID, SELFPAY | PROVIDERS: PCP Family Medicine Adult Medicine; Visit Provider Orthopaedic Surgery | DX: Z47.89 Encounter for other orthopedic aftercare (principal); Z98.1 Arthrodesis status | CPT/HCPCS: 99024 ==

== ENCOUNTER 2022-08-17 13:21 | Outpatient (CLI) | payer MEDICARE, MEDICAID, SELFPAY ==
[2022-08-17 14:35] LABS: Prostate Specific AG Urology 29.01 ng/mL (0-4)
== END 2022-08-17 13:22 | disposition home or self-care (01) ==
LOC: LAB 13:25
PROVIDERS: PCP Family Medicine Adult Medicine; Visit Provider Urology
DX: R97.20 Elevated prostate specific antigen [PSA] (principal)
CPT/HCPCS: 36415; 84153

== ENCOUNTER → 2022-08-23 09:41 | Outpatient (BNVA) | payer MEDICARE, MEDICAID, SELFPAY | PROVIDERS: PCP Family Medicine Adult Medicine; Visit Provider Urology | DX: R97.20 Elevated prostate specific antigen [PSA] (principal); N40.1 Benign prostatic hyperplasia with lower urinary tract symptoms; N13.8 Other obstructive and reflux uropathy | CPT/HCPCS: 81003; 99213 ==

== ENCOUNTER → 2022-09-01 13:09 | Outpatient (BNVA) | payer MEDICARE, MEDICAID, SELFPAY | PROVIDERS: PCP Family Medicine Adult Medicine; Visit Provider Orthopaedic Surgery | DX: Z47.89 Encounter for other orthopedic aftercare (principal); Z98.1 Arthrodesis status | CPT/HCPCS: 72040; 99024 ==

== ENCOUNTER → 2022-10-13 13:05 | Outpatient (BNVA) | payer MEDICARE, MEDICAID, SELFPAY | PROVIDERS: PCP Family Medicine Adult Medicine; Visit Provider Physician Assistant | DX: Z98.1 Arthrodesis status (principal) | CPT/HCPCS: 72040; 99024 ==

== ENCOUNTER 2022-11-09 10:37 | Outpatient (CLI) | payer MEDICARE, MEDICAID, SELFPAY ==
[2022-11-09 11:42] LABS: Prostate Specific AG Urology 19.61 ng/mL (0-4)
== END 2022-11-09 10:38 | disposition home or self-care (01) ==
LOC: LAB 10:42
PROVIDERS: PCP Family Medicine Adult Medicine; Visit Provider Urology
DX: R97.20 Elevated prostate specific antigen [PSA] (principal)
CPT/HCPCS: 84153

== ENCOUNTER → 2022-11-16 13:02 | Outpatient (BNVA) | payer MEDICARE, MEDICAID, SELFPAY | PROVIDERS: PCP Family Medicine Adult Medicine; Visit Provider Urology | DX: N40.1 Benign prostatic hyperplasia with lower urinary tract symptoms (principal); R97.20 Elevated prostate specific antigen [PSA] | CPT/HCPCS: 81003; 99213 ==

== ENCOUNTER → 2023-01-12 12:46 | Outpatient (BNVA) | payer MEDICARE, MEDICAID, SELFPAY | PROVIDERS: PCP Family Medicine Adult Medicine; Visit Provider Physician Assistant | DX: M47.12 Other spondylosis with myelopathy, cervical region (principal); M48.062 Spinal stenosis, lumbar region with neurogenic claudication; Z98.1 Arthrodesis status | CPT/HCPCS: 72040; 99213 ==

== ENCOUNTER → 2023-01-17 09:26 | Outpatient (BNVA) | payer MEDICARE, MEDICAID, SELFPAY | PROVIDERS: PCP Family Medicine Adult Medicine; Referring Provider Specialist; Visit Provider Specialist | DX: N31.9 Neuromuscular dysfunction of bladder, unspecified (principal); R26.89 Other abnormalities of gait and mobility; Z98.890 Other specified postprocedural states | CPT/HCPCS: 99214 ==

== ENCOUNTER 2023-01-26 08:18 | Outpatient (RCR) | payer MEDICARE, MEDICAID, SELFPAY | END 2023-02-06 23:59 | disposition home or self-care (01) | LOC: SPT 08:18 | PROVIDERS: PCP Family Medicine Adult Medicine; Visit Provider Physician Assistant | DX: M54.50 Low back pain, unspecified (principal) | CPT/HCPCS: 97110; 97161 ==

== ENCOUNTER 2023-02-07 06:00 | Outpatient (RCR) | payer MEDICARE, MEDICAID, SELFPAY | END 2023-02-24 23:59 | disposition home or self-care (01) | LOC: SPT 06:00 | PROVIDERS: PCP Family Medicine Adult Medicine; Visit Provider Physician Assistant | DX: M54.50 Low back pain, unspecified (principal) | CPT/HCPCS: 97110 ==

== ENCOUNTER → 2023-03-23 12:42 | Outpatient (BNVA) | payer MEDICARE, MEDICAID, SELFPAY | PROVIDERS: PCP Family Medicine Adult Medicine; Visit Provider Physician Assistant | DX: Z98.1 Arthrodesis status; M48.062 Spinal stenosis, lumbar region with neurogenic claudication | CPT/HCPCS: 99213 ==

== ENCOUNTER → 2023-04-06 09:50 | Outpatient (BNVA) | payer MEDICARE, MEDICAID, SELFPAY | PROVIDERS: PCP Family Medicine Adult Medicine; Visit Provider Family Medicine Adult Medicine | DX: I10 Essential (primary) hypertension (principal); N18.2 Chronic kidney disease, stage 2 (mild); R63.5 Abnormal weight gain; R26.9 Unspecified abnormalities of gait and mobility; R97.20 Elevated prostate specific antigen [PSA]; N40.1 Benign prostatic hyperplasia with lower urinary tract symptoms; R29.898 Other symptoms and signs involving the musculoskeletal system; M48.062 Spinal stenosis, lumbar region with neurogenic claudication; H34.8122 Central retinal vein occlusion, left eye, stable; M10.9 Gout, unspecified | CPT/HCPCS: 80053; 80061; 83036; 84443; 85025; G0103 ==

== ENCOUNTER → 2024-01-02 09:21 | Outpatient (BNVA) | payer MEDICARE, MEDICAID, SELFPAY | PROVIDERS: PCP Family Medicine Adult Medicine; Visit Provider Family Medicine Adult Medicine | DX: E78.5 Hyperlipidemia, unspecified (principal); I10 Essential (primary) hypertension; R97.20 Elevated prostate specific antigen [PSA]; N40.1 Benign prostatic hyperplasia with lower urinary tract symptoms; Z79.899 Other long term (current) drug therapy | CPT/HCPCS: 80053; 84153; 84443; 85025; 87086 ==

== ENCOUNTER → 2024-10-14 10:57 | Outpatient (BNVA) | payer MEDICAID, MEDICARE, SELFPAY | PROVIDERS: PCP Family Medicine Adult Medicine; Visit Provider Family Medicine | DX: I10 Essential (primary) hypertension (principal); I87.2 Venous insufficiency (chronic) (peripheral); E78.5 Hyperlipidemia, unspecified; N18.2 Chronic kidney disease, stage 2 (mild); R73.01 Impaired fasting glucose; E66.9 Obesity, unspecified | CPT/HCPCS: 80053; 80061; 83036; 85025 ==

== ENCOUNTER 2025-01-13 12:02 | Outpatient (CLI) | payer MEDICARE, MEDICAID, SELFPAY ==
--- NOTE | 2025-01-13 12:07 | XRR_ITS ---
PROCEDURE INFORMATION: Exam: XR Left Knee Exam date and time: 01/13/2025 12:19 PM Age: 64 years old Clinical indication: Pain; Knee; Left; Additional info: Chronic left knee pain TECHNIQUE: Imaging protocol: Radiologic exam of the left knee. Views: 3 views. COMPARISON: No relevant prior studies available. FINDINGS: Bones/joints: A fabella is noted. No acute fracture or traumatic malalignment. Mild tricompartmental degenerative changes. No knee joint effusion. Soft tissues: Overlying soft tissue are unremarkable. XR/XR knee LT 3V* [id number] IMPRESSION: As above.
== END 2025-01-13 12:03 | disposition home or self-care (01) ==
LOC: LAB 12:03 → RAD 12:05
PROVIDERS: PCP Family Medicine; Visit Provider Family Medicine
DX: M25.562 Pain in left knee (principal); G89.29 Other chronic pain; I10 Essential (primary) hypertension; Z12.5 Encounter for screening for malignant neoplasm of prostate
CPT/HCPCS: 73562; 84443; 86803; G0103

== ENCOUNTER → 2025-01-20 10:04 | Outpatient (BNVA) | payer MEDICARE, MEDICAID, SELFPAY | PROVIDERS: PCP Family Medicine; Visit Provider Student in an Organized Health Care Education/Training Program | DX: Z12.11 Encounter for screening for malignant neoplasm of colon (principal) | CPT/HCPCS: 99204 ==

== ENCOUNTER 2025-03-04 06:38 | Day surgery (SDC) | payer MEDICARE, MEDICAID, SELFPAY ==
[2025-03-04 07:01] VITALS: BP 135/78; PULSE 81; RESP 16; TEMP 36.2; O2SAT 93; BMI 37.9
--- NOTE | 2025-03-04 07:18 | ANES.PREANE2 ---
Pre-Anesthetic Assessment Height/Weight: Height 1.68 m Weight 106.594 kg Temp Pulse Resp BP Pulse Ox O2 Del Method 97.2 F L 81 16 135/78 93 Room Air 03/04/25 07:01 03/04/25 07:01 03/04/25 07:01 03/04/25 07:01 03/04/25 07:01 03/04/25 07:01 Preop Diagnosis: screening Operation Date: 03/04/25 07:45 Proposed Procedures p Colonoscopy 92956, Z12.11(Not Applicable) - Oskar Flood MD Familial anesthetic complications: none Was Beta Grace taken within 24 hours: N/A Was Clonidine taken within 24 hours: N/A Last intake: Intake Last Liquid Date 03/03/25 Last Liquid Time 18:00 Last Solid Date 03/02/25 Last Solid Time 18:00 Social No alcohol and No tobacco Exam alert, oriented x 3, clear to auscultation bilaterally and regular rate & rhythm Airway Submandibular: within normal limits Cervical ROM: within normal limits Mallampati: Class III Dentition: chipped and loose Comments: Comments: very poor dentition- small mouth opening. Pulmonary None reported CV/HEM Hypertension None reported Hepatic None reported GI None reported Metabolic Hyperlipidemia Musc/skel Weakness walker due to bad back and knee (OA) Neuropsych None reported Anesthetic Plan ASA status: 3 Anesthesia: MAC Medications/Allergies Home Medications ?Medication ?Instructions ?Recorded ?Confirmed ?Last Taken ?Type acetaminophen 650 mg 650 mg PO Q8H PRN Pain (Scale 07/16/21 03/04/25 07/19/22 History tablet,extended release (Tylenol Score 1-3) Arthritis Pain) Bone Growth Stimulator E0748 #1 ea 07/25/22 01/30/25 Unknown Rx lisinopril 20 mg tablet 20 mg PO DAILY blood pressure #100 03/26/24 03/04/25 03/03/25 Rx tabs azelastine 137 mcg (0.1 %) nasal 1 spray intranasal BID PRN 05/06/24 03/04/25 03/03/25 Rx spray allergies 90 days #60 mL hydrochlorothiazide 12.5 mg tablet 12.5 mg PO DAILY #100 tabs 12/25/24 03/04/25 03/03/25 Rx meloxicam 15 mg tablet 15 mg PO DAILY PRN left knee pain 02/19/25 03/04/25 Unknown Rx #30 tabs allopurinol 100 mg tablet 100 mg PO BID 02/26/25 03/04/25 03/03/25 History simvastatin 40 mg tablet 40 mg PO DAILY 02/26/25 03/04/25 03/03/25 History Allergies Allergy/AdvReac Type Severity Reaction Status Date / Time mold Allergy Unknown Unknown Verified 02/26/25 08:54 aspirin Allergy decreased Verified 02/26/25 08:54 hearing Penicillins Allergy decreased Verified 02/26/25 08:54 hearing Current Medications Generic Name Dose Route Start Last Admin Trade Name Freq PRN Reason Stop Dose Admin Sodium Chloride 1,000 mls @ 15 mls/hr 03/04/25 06:58 03/04/25 07:07 Sodium Chloride 0.9% IV 03/05/25 06:57 15 mls/hr .Q24H PRN Administration COLONOSCOPY FLUIDS PFSH Anesthesia Medical History Chronic pain of left knee Venous insufficiency (chronic) (peripheral) Dyslipidemia (high LDL; low HDL) Retinal vein occlusion of left eye 02/10/2023 [facility], With macular edema, bilateral optic drusen, bilateral pseudophakia, right cystoid macular edema Cervical spondylosis with myelopathy Spinal stenosis of cervicothoracic region with radiculopathy Obesity (BMI 35.0-39.9 without comorbidity) Spinal stenosis, lumbar region with neurogenic claudication CKD (chronic kidney disease) stage 2, GFR 60-89 ml/min BPH loc w urin obs/LUTS has now had TURP Elevated PSA due to BPH; has had bx Hypertension Surgical History Injection of surface of right eye left Hx of transurethral resection of prostate in [facility] Status post cervical spinal fusion Surg. 07/23/2022 Dr. Chase Anterior diskectomy C4/5, Anterior discectomy C5/6, Instrumentation with anterior plate from C4-6, Hx of prostate biopsy 10/28/2021 [facility]/Bx with chronic inflammation, Dr. Mendez History of cataract surgery bilateral Family History Mother , AT AGE 62 Stroke Father No problems noted. 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
--- NOTE | 2025-03-04 07:55 | W.PM.OPSFHP ---
Same Day Surgery H&P Indication for Procedure/HPI DATE OF PROCEDURE: March 04, 2025 CHIEF COMPLAINT/INDICATIONFOR SURGICAL PROCEDURE: screening colonoscopy PREOP DIAGNOSIS: screening colonoscopy PLANNED PROCEDURE: Operation Date: 03/04/25 07:45 Proposed Procedures p Colonoscopy 54602, Z12.11(Not Applicable) - Oskar Flood MD Medications/Allergies* Home Medications ?Medication ?Instructions ?Recorded ?Confirmed ?Type acetaminophen 650 mg 650 mg PO Q8H PRN Pain (Scale 07/16/21 03/04/25 History tablet,extended release (Tylenol Score 1-3) Arthritis Pain) allopurinol 100 mg tablet 100 mg PO BID 02/26/25 03/04/25 History simvastatin 40 mg tablet 40 mg PO DAILY 02/26/25 03/04/25 History Allergies/Adverse Reactions Allergy/AdvReac Type Severity Reaction Status Date / Time mold Allergy Unknown Unknown Verified 02/26/25 08:54 aspirin Allergy decreased Verified 02/26/25 08:54 hearing Penicillins Allergy decreased Verified 02/26/25 08:54 hearing Current Medications: Generic Name Dose Route Start Last Admin Trade Name Freq PRN Reason Stop Dose Admin Sodium Chloride 1,000 mls @ 15 mls/hr 03/04/25 06:58 03/04/25 07:07 Sodium Chloride 0.9% IV 03/05/25 06:57 15 mls/hr .Q24H PRN Administration COLONOSCOPY FLUIDS Pertinent History/Comorbid Conditions* Medical History (Updated 01/13/25 @ 13:04 by Ilnaa Bravo MD) Chronic pain of left knee Venous insufficiency (chronic) (peripheral) Dyslipidemia (high LDL; low HDL) Retinal vein occlusion of left eye 02/10/2023 [facility], With macular edema, bilateral optic drusen, bilateral pseudophakia, right cystoid macular edema Cervical spondylosis with myelopathy Spinal stenosis of cervicothoracic region with radiculopathy Obesity (BMI 35.0-39.9 without comorbidity) Spinal stenosis, lumbar region with neurogenic claudication CKD (chronic kidney disease) stage 2, GFR 60-89 ml/min BPH loc w urin obs/LUTS has now had TURP Elevated PSA due to BPH; has had bx Hypertension Surgical History (Updated 10/14/24 @ 10:48 by Ilana Bravo MD) Injection of surface of right eye left Hx of transurethral resection of prostate in [facility] Status post cervical spinal fusion Surg. 07/23/2022 Dr. Chase Anterior diskectomy C4/5, Anterior discectomy C5/6, Instrumentation with anterior plate from C4-6, Hx of prostate biopsy 10/28/2021 [facility]/Bx with chronic inflammation, Dr. 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
--- NOTE | 2025-03-04 08:07 | PC.NURSE ---
Cecum time 0807
[2025-03-04 08:20] VITALS: BP 115/78; PULSE 82; RESP 16; TEMP 36.1; O2SAT 93
[2025-03-04 08:34] VITALS: BP 122/77; PULSE 73; RESP 17; O2SAT 94
--- NOTE | 2025-03-04 08:49 | ANE.PACU2 ---
Inpatient post-anesthesia follow up: Airway intact: Yes Vital signs: Temperature 97.0 F Pulse Rate 73 Respiratory Rate 17 Blood Pressure 122/77 Pulse Oximetry 94 Oxygen Delivery Me thod Room Air Oxygen Flow Rate Fraction of Inspir ed Oxygen Hydration adequate: Yes Nausea and vomiting: No Pain level: 1 Mental status: Baseline
== END 2025-03-04 08:49 | disposition home or self-care (01) ==
PROVIDERS: PCP Family Medicine; Visit Provider Student in an Organized Health Care Education/Training Program
PROC: 0DJD8ZZ Inspection of Lower Intestinal Tract, Via Natural or Artificial Opening Endoscopic (ICD-10-PCS; CPT 45378; principal; 2025-03-04 07:45)
DX: Z12.11 Encounter for screening for malignant neoplasm of colon (principal); K57.30 Diverticulosis of large intestine without perforation or abscess without bleeding; E78.5 Hyperlipidemia, unspecified; E66.9 Obesity, unspecified; Z68.37 Body mass index [BMI] 37.0-37.9, adult; I12.9 Hypertensive chronic kidney disease with stage 1 through stage 4 chronic kidney disease, or unspecified chronic kidney disease; N18.2 Chronic kidney disease, stage 2 (mild)
CPT/HCPCS: G0121; J2704; J7030